=== PATIENT | male | born 1995 ===

== ENCOUNTER 2017-08-10 01:56 | Emergency (ER) | payer OTHER ==
[2017-08-10 02:30] VITALS: BP 122/73; PULSE 83; RESP 18; TEMP 98.3; O2SAT 99
--- NOTE | 2017-08-10 03:11 | ED PDOC ---
Lower Extremity Pain/Injury Time Seen by Provider: 08/10/17 02:03 Chief Complaint (Nursing): Lower Extremity Problem/Injury Chief Complaint (Provider): R lower extremity pain/edema History/Exam Limitations: no limitations Onset/Duration Of Symptoms: Days Current Symptoms Are (Timing): Better Severity: Mild Pain Scale Rating Of: 3 Legs Front+Back: 1 - pain/edema 2 - pain/edema Additional Complaint(s): 22 yo M with pmhx of L tibial fracture, ADD and depression presents to the ER with R ankle swelling and pain. Pt states that for the past 3 days, he has been experiencing increased pain to his R ankle and radiating down to the toes. Pain is sharp in character. Max is 10/10; currently 3/10; Aggravated with prolonged standing and ambulating. Alleviated with rest, elevation, and Advil. Pt reports starting to jog. Not currently depressed. PCP: Dr. Krueger pmhx: L tibial fracture, ADD and depression Surg: none Famhx: DM, CAD Soc: lives alone, Denies: smoking, etoh, illicit drugs Rx: none: has not taken antidepressant meds for 4 years NKDA - Hip Description Of Injury: Other (Compensation 2/2 to hx of L fracture) - Ankle/Foot Description Of Injury: Other (No apparent injury, accidents) Alleviating Factor(s): Ice Therapy, Elevation, OTC Pain Medication Past Medical History Vital Signs: Last Vital Signs Temp 98.3 F 08/10/17 02:10 Pulse 83 08/10/17 02:10 Resp 18 08/10/17 02:10 BP 122/73 08/10/17 02:10 Pulse Ox 99 08/10/17 02:10 - Medical History PMH: Depression, Fractures (L tibial) - Surgical History Surgical History: No Surg Hx - Family History Family History: States: CAD, Diabetes - Living Arrangements Living Arrangements: Alone - Social History Current smoker - smoking cessation education provided: No Alcohol: None Drugs: Denies - Allergies Allergies/Adverse Reactions: Allergies Allergy/AdvReac Type Severity Reaction Status Date / Time No Known Allergies Allergy Verified 08/10/17 02:58 Review of Systems Constitutional: Negative for: Fever, Chills Cardiovascular: Negative for: Chest Pain Respiratory: Negative for: Cough, Shortness of Breath Gastrointestinal: Negative for: Nausea, Vomiting Musculoskeletal: Positive for: Foot Pain (R) Psych: Negative for: Depression Physical Exam - Reviewed Vital Signs Reviewed: Yes - Physical Exam Appears: Positive for: Well, No Acute Distress Head Exam: Positive for: ATRAUMATIC Skin: Positive for: Normal Color, Warm, Dry Eye Exam: Positive for: Normal appearance, EOMI Neck: Positive for: Normal, Painless ROM Cardiovascular/Chest: Positive for: Regular Rate, Rhythm, Chest Non Tender. Negative for: Murmur Respiratory: Positive for: Normal Breath Sounds. Negative for: Wheezing Pulses-Dorsalis Pedis (L): 2+ Pulses-Dorsalis Pedis (R): 2+ Pulses-Post. Tibialis (L): 2+ Pulses-Post. Tibialis (R): 2+ Gastrointestinal/Abdominal: Positive for: Normal Exam, Bowel Sounds, Soft. Negative for: Tenderness Extremity: Positive for: Normal ROM, Capillary Refill (<2sec). Negative for: Pedal Edema, Calf Tenderness, Deformity, Swelling Neurologic/Psych: Positive for: Alert, glass sander II-XII, Oriented. Negative for: Gait - ECG O2 Sat by Pulse Oximetry: 99 Disposition - Clinical Impression Clinical Impression: Foot pain - Patient ED Disposition Is Patient to be Admitted: No - Disposition Referrals: Podiatry Clinic [Outside] Disposition Time: 05:43 Condition: STABLE Additional Instructions: Pt to f/u with podiatry and pcp this week. Instructions: Foot Sprain (DC) Forms: [employer] ([place])
--- NOTE | 2017-08-10 09:57 | RAD ---
PROCEDURE: Right Foot Radiographs. HISTORY: pain COMPARISON: None. FINDINGS: BONES: Three views of the right foot were performed. No fracture is seen. No periosteal reaction is noted. No erosions are seen. Visualized tarsal bones are within normal limits. No phalangeal dislocation is seen. Subtalar joint is unremarkable. Visualized talar dome and distal tibia and fibula are intact. JOINTS: Normal. SOFT TISSUES: Normal. OTHER FINDINGS: None. IMPRESSION: No appreciable fracture. No plain film evidence of stress fracture or periosteal reaction.
== END 2017-08-10 06:39 | disposition home or self-care (01) ==
LOC: H.ER 01:56
DX: M79.673 Pain in unspecified foot (principal); Z86.59 Personal history of other mental and behavioral disorders; Z82.49 Family history of ischemic heart disease and other diseases of the circulatory system; I25.10 Atherosclerotic heart disease of native coronary artery without angina pectoris